=== PATIENT | male | born 1995 | race Caucasian/White ===

== ENCOUNTER 2019-10-12 13:43 | Outpatient (CLI) | payer MEDICAID ==
--- NOTE | 2019-10-12 14:55 | General Progress Note ---
Assessment/Plan Assessment/Plan: CD since 07/2015 asymptomatic refill imuran 48 labs RTC 4 months Subjective ROS Limited/Unobtainable: Yes Objective General Appearance: alert EENT: normal ENT inspection Neck: supple Cardiovascular: normal rate Respiratory/Chest: chest wall non-tender Abdomen: normal bowel sounds, non tender, soft Extremities: non-tender Harvindre Padilla MD Oct 12, 2019 14:55
[2019-10-18] MEDS ORDERED: AZASAN75 MG PO (13:37)
== END 2019-10-12 15:43 | disposition home or self-care (01) ==
LOC: PAN 13:43
DX: K50.90 Crohn's disease, unspecified, without complications (principal)
CPT/HCPCS: G0463